=== PATIENT | male | born 1950 | race Caucasian/White ===

== ENCOUNTER → 2021-06-16 | Outpatient (CLI) | payer OTHER ==
[~2021-06-16] VITALS: Ht 167.6 cm; Wt 79.4 kg
[~2021-06-16] MED LIST: ALLOPURINOL 10100 M3 PO; LEVO-T50 MCG PO; LIPITOR 20 MG T20 M1 PO; LISINOPRIL10 MG PO; PROTONIX40 M3 PO; RELAFEN500 M1 PO
[2021-06-16 11:08] VITALS: BP 147/77
--- NOTE | 2021-06-16 11:20 | NUR ---
Pain Clinic Assessment: 1. History of Osteoarthritis: Right Upper Extremity History of Rheumatoid Arthritis: Not Applicable 2. Height: 5 ft. 6 in. 167.6 cm. Weight: 175.0 lb. oz. 79.380 kg. Patient's BMI: 28.3 3. Vital Signs: BP: 147/77 Pulse: 56 Resp: 16 Temp: 02 Sat: 98 ECG Mon: 4. Pain Intensity: 3-10 5. Fall Risk: Dizziness: N Needs help standing or walking: N Fallen in the last 3 months: N Fall risk comments: 6. Patient on Blood Thinner: None 7. History of Hypertension: Y 8. Opioid Therapy greater than 6 weeks: N Opiate Contract Signed: 9. Risk Assessment Tool Provided: LOW 10. Functional Assessment Tool: 11. Recreational Drug Use: Never Drug Type: Tobacco Use: Never Smoker Tobacco Type: Amount or Packs/day: How Many Years: Alcohol Use: No Frequency: Quant:
== END ==
LOC: PAIN 09:54
PROVIDERS: ATTEND Anesthesiology Pain Medicine
DX: M25.572 Pain in left ankle and joints of left foot (principal); M25.571 Pain in right ankle and joints of right foot; L40.59 Other psoriatic arthropathy; Z88.0 Allergy status to penicillin; Z88.8 Allergy status to other drugs, medicaments and biological substances; Z79.899 Other long term (current) drug therapy

== ENCOUNTER → 2021-07-06 | Outpatient (CLI) | payer OTHER ==
[~2021-07-06] VITALS: Ht 167.6 cm; Wt 84.6 kg
[~2021-07-06] MED LIST changes: +DICLOFENAC SOD50 M1 PO
--- NOTE | ~2021-07-06 | HPC ---
[facility] [address] [place] [address] PAIN MANAGEMENT CONSULTATION Name: YAKOV PAREDES GENE Room #: REG RUBA SaumyaWillEmiliano#: [id number] Admission: 07/06/21 Attend Phys: Earl Guerra DO Discharge: Date of : 52 Report #: [id number] THIS REPORT FOR: cc: Julio C Bal Damon DO Johnson, James E. DO ~ cc: Julio C Lindsay DO DATE OF SERVICE: 07/06/2021 REFERRING PHYSICIAN: Dr. Noé Bal. CHIEF COMPLAINT: Neck pain. HISTORY OF PRESENT ILLNESS: As you know, the patient is a very pleasant 70-year-old male with longstanding history of progressively worsening neck pain. Neck pain is due to facet arthropathy of the cervical spine. We saw the patient in consultation and described the treatment options that we offer which included physical therapy, stretching exercises, traction techniques, medication management utilizing nonsteroidal anti-inflammatories on a consistent basis. We also discussed intra-articular facet injections, medial branch nerve blocks and radiofrequency lesioning, but these are not offered through our services. The patient chose to begin with medication management. He was started on nabumetone, noted excellent benefit in symptoms, 90% improvement in overall pain, but unfortunately the dyspepsia became problematic enough, the patient had to discontinue the medication. He was reporting 90% improvement in symptoms and near complete return to all activities of daily living with the nabumetone, but unfortunately the dyspepsia has led to its need to be discontinued. The dyspepsia has resolved. He returns to discuss other treatment options. He is placing pain today at around 1-8/10 depending on activity. ALLERGIES: PENICILLIN. CURRENT MEDICATIONS: Lisinopril 10 mg once a day, atorvastatin 20 mg per day, allopurinol 100 mg b.i.d., levothyroxine 50 mcg per day, pantoprazole 40 mg once a day. SOCIAL HISTORY: The patient denies tobacco use. Denies IV or illicit drug use. Denies any chronic alcohol use. 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 IMAGING: No new imaging is available. PQRS: The patient has known arthritic changes of cervical spine, right shoulder and elbow. No rheumatoid arthritis. He is placing pain intensity anywhere from 1-8/10. He is not a fall risk, has not had a fall in last 3 months. He is not on blood thinners, but is treated for hypertension. He is on no opioids, has a [facility] [address] [place] [address] PAIN MANAGEMENT CONSULTATION Name: YAKOV PAREDES [facility] Room #: REG [facility]#: [id number] Admission: 07/06/21 Attend Phys: Earl Guerra DO Discharge: Date of : 52 Report #: [id number] low opioid addiction potential based on assessment tool. Pain impact is 37/70, moderate interference of daily activities secondary to pain. PHYSICAL EXAMINATION: VITAL SIGNS: Blood pressure 125/97, pulse is 71, respiratory rate 14 and unlabored. The patient is 97% on room air. Height 5 feet 6 inches tall, weight 186.4 pounds, BMI calculated 30.1. GENERAL: Well-developed, well-nourished, well-hydrated 70-year-old male appearing stated age. Pain is rated anywhere from 1-8/10 depending on activity and cervical movement. HEENT: Normocephalic, atraumatic. Pupils are round. He is wearing a facemask in compliance with COVID-19 regulations. EXTREMITIES: Show no clubbing, no cyanosis, no edema. MUSCULOSKELETAL: The patient's upper extremity strength remains symmetrical 5/5. Muscle bulk and tone is equal and symmetrical comparing left upper extremity to right. Cervical provocation testing is met with increasing neck pain. This is noted mainly with rotation, lateral flexion and extension of the neck. There is also limitation in mobility due to facet arthropathy. He remains intact to light touch from C5 to T1 dermatomes. Spurling test negative. ASSESSMENT: 1. 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 2. Severe facet arthropathy of cervical spine. 3. Cervical degeneration. 4. Chronic intractable pain. PLAN: 1. The patient returns today in followup visit indicating excellent benefit with the nabumetone. Unfortunately, this led to some dyspepsia that had led to subsequent discontinuation of medication. The dyspepsia has improved. The patient denied any changes in bowel color or concern of any GI bleed. He was very pleased with response to treatment. He is somewhat upset that he was unable to continue the medication. He returns to discuss other options for treatment. 2. The patient and I did discuss the possibility of rotating to a new nonsteroidal anti-inflammatory to determine if he can take the medication without the dyspepsia. We will start the patient on diclofenac 50 mg GI protected delivery method. He will take the tablet b.i.d. I have given him #60 tablets with 2 refills, assuming he has no side effects to the medication including dyspepsia, worsening of blood pressure, or lower extremity edema. We have given him the GI protective formulation of the diclofenac in hopes of reducing the potential for development of dyspepsia. The prescription was sent via e-scribe to local pharmacy. 3. We did discuss with the patient that if he is considering cervical facet injections, medial branch nerve blocks and radiofrequency lesioning, he will need a referral from his primary care physician to pain clinics that still [facility] [address] [place] [address] PAIN MANAGEMENT CONSULTATION Name: YAKOV PAREDES GENE [id number] Admission: 07/06/21 Attend Phys: Earl Guerra DO Discharge: Date of : 52 Report #: [id number] perform this procedure. The patient will follow up with his PCP if he wishes to have a referrals to their clinics. 4. We will see the patient back in followup visit on an as needed basis. I am hopeful the medication provided today will give the patient similar benefit as the nabumetone without the side effects. By: [id number] Earl Guerra DO /nt
[2021-07-06 10:50] VITALS: BP 125/97
--- NOTE | 2021-07-06 11:05 | NUR ---
Pain Clinic Assessment: 1. History of Osteoarthritis: Right Upper Extremity History of Rheumatoid Arthritis: Not Applicable 2. Height: 5 ft. 6 in. 167.6 cm. Weight: 186.4 lb. oz. 84.551 kg. Patient's BMI: 30.1 3. Vital Signs: BP: 125/97 Pulse: 71 Resp: 14 Temp: 02 Sat: 97 ECG Mon: 4. Pain Intensity: 1 TO 8(HEAD MOVEMENT) 5. Fall Risk: Dizziness: N Needs help standing or walking: N Fallen in the last 3 months: N Fall risk comments: 6. Patient on Blood Thinner: None 7. History of Hypertension: Y 8. Opioid Therapy greater than 6 weeks: N Opiate Contract Signed: 9. Risk Assessment Tool Provided: LOW 10. Functional Assessment Tool: 11. Recreational Drug Use: Never Drug Type: Tobacco Use: Never Smoker Tobacco Type: Amount or Packs/day: How Many Years: Alcohol Use: No Frequency: Quant:
== END ==
LOC: PAIN 07:03
PROVIDERS: ATTEND Anesthesiology Pain Medicine
DX: M47.812 Spondylosis without myelopathy or radiculopathy, cervical region (principal); M50.30 Other cervical disc degeneration, unspecified cervical region; G89.29 Other chronic pain; Z79.899 Other long term (current) drug therapy; Z88.0 Allergy status to penicillin